=== PATIENT | male | born 2000 | race Caucasian/White ===

== ENCOUNTER 2024-05-06 10:05 | Emergency (ER) | payer MEDICAID, SELFPAY ==
[2024-05-06 10:07] VITALS: BP 123/81; PULSE 88; RESP 19; TEMP 37; O2SAT 98; BMI 26.4
--- NOTE | 2024-05-06 10:45 | EDNOTE_ITS ---
ED Wound/Laceration-RME/HPI General Chief Complaint: Wound/Laceration Stated Complaint: I THINK I NEED STITCHES ON MY THUMB Time Seen by Provider: 05/06/24 10:12 Source: patient Arrival date/time: 05/06/24 10:05 24-year-old male presented to the emergency department with a distal tip first digit right hand laceration. Patient reports he was working with his tile saw and accidentally cut the distal tip of his finger. Patient did not attempt any interventions or take any OTC medications prior to ED visit. Mode of arrival: ambulatory Limitations: no limitations Related Data Previous Rx's ?Medication ?Instructions ?Recorded hydroxyzine HCl 25 mg tablet 25 mg PO Q8H PRN anxiety #30 tabs 09/06/17 etodolac 400 mg tablet 400 mg PO BID PRN pain #30 tabs 12/09/21 Allergies Allergy/AdvReac Type Severity Reaction Status Date / Time No Known Allergies Allergy Unknown Verified 05/06/24 10:06 Review of Systems Review of Systems Systems Reviewed: All systems reviewed, normal except as documented Narrative Review of Systems: Gen: No fever, no chills, no weight loss EYES: No discharge, no visual changes, no pain HEENT: No ear pain, no congestion, no sore throat PULM: No shortness of breath, no cough, no congestion CV: No chest pain, no dyspnea on exertion, no palpitations GI: No nausea, no vomiting, no diarrhea, no pain, no constipation : No frequency, no urgency,? no dysuria Musc/skel: +finger pain, no back pain Skin: No rash? ED Exam General Limitations: Present no limitations General appearance: Present alert and in no apparent distress Head Head exam: Present atraumatic Eye Eye exam: Present normal appearance, PERRL and EOMI ENT ENT exam: Present normal exam, normal oropharynx and mucous membranes moist Neck Neck exam: Present normal inspection, full ROM and trachea midline Chest Chest inspection: Present normal inspection and symmetric chest wall rise Respiratory Respiratory exam: Present normal lung sounds bilaterally Cardiovascular Cardiovascular exam: Present regular rate, normal rhythm, normal heart sounds, +S1 and +S2 Abdominal Exam Abdominal exam: Present soft and normal bowel sounds Extremities Exam Extremities exam: Present full ROM Expanded Upper Extremity Exam Shoulder exam: Present normal inspection Arm exam: Present normal inspection Elbow exam: Present normal inspection Forearm/Wrist exam: Present normal inspection Hand L/R back image: 2 1. RT hand 1st digit, distal skin avulsion. CMS intact. Back Exam Back exam: Present normal inspection and full ROM Neurological Exam Neurological exam: Present alert, oriented X3 and CN II-XII intact Psychiatric Psychiatric exam: Present normal affect and normal mood Skin Skin exam: Present warm, dry, intact and normal color Course Quality Measures none Orders Category Date Time Status Wound Care NOW Care 05/06/24 10:35 Completed XR finger RT min 2V Stat Exams 05/06/24 11:01 Completed Vital Signs Vital signs: Vital Signs Temperature 98.6 F 05/06/24 10:07 Pulse Rate 88 05/06/24 10:07 Respiratory Rate 19 05/06/24 10:07 Blood Pressure 123/81 05/06/24 10:07 Pulse Oximetry (%) 98 05/06/24 10:07 Oxygen Delivery Method Room Air 05/06/24 10:07 Wound / Laceration MDM Narrative MDM Narrative:: Proceudre: Using sterile technique, patients wound cleansed, 1cm superficial wound clease with 150ml of normal saline, alllowed to dry, then used 3 steri strips with Dermabond for complete closure of wound. Patient tolerated procedure well. He is up-to-date with his Tdap. Wound care, follow-up with his PCP 3 days for follow-up care Return to the emergency department with any worsening symptoms and condition. Patient data External records reviewed:: [facility] previous records Clinical information provided by:: patient Social determinants that could affect healthcare access:: none Patient has the following chronic illnesses:: no How is presenting disease/condition affected by chronic disease/condition?: no chronic disease Evaluation data The following diagnostics were reviewed and interpreted by me:: radiology exam(s) Lab and/or radiology exams considered but not ordered:: no Interpretation Summary: Examination: Fingers, right hand first digit 3 views Technique: AP, oblique, lateral views right hand first digit 3 views. Exam date and time: May 06, 2024 1102 hours INDICATIONS: Laceration to the thumb today with some pain FINDINGS: No acute fracture No foreign body No dislocation IMPRESSION: Negative for opaque foreign body Medications / Prescriptions Medications or Prescriptions considered but not ordered:: no Medication administrations:: No Consultations Consultation(s) initiated? (list below): No Diagnosis Wound Differential Diagnosis: laceration, abscess, abrasion and avulsion of skin Most likely diagnosis given after review of the tests above:: Superficial laceration right thumb, dermabond Admission Indicated Admission indicated?: not indicated Admission Request Was there a request for admission?: No Disposition Plan Disposition Plan: Discharge Discharge Attestation Discharge Attestation: The patient and all family members were given an opportunity to ask questions and understood the discharge instructions. Discharge instructions specifically effects, indications for sooner follow up or return to the emergency department, and the expected course of current diagnosis. Patient condition: Stable Discharge Plan Plan Patient Disposition: HOME (Self Care) Patient condition on transfer: Stable Prescriptions/Referrals Prescriptions/Med Rec: No Action hydroxyzine HCl 25 mg tablet 25 mg PO Q8H PRN (Reason: anxiety) Qty: 30 0RF etodolac 400 mg tablet 400 mg PO BID PRN (Reason: pain) Qty: 30 0RF Problem List Clinical Impression: Laceration Patient/Caregiver Discharge Instructions Discharge Activity: activity as tolerated Education Materials: ED Laceration, Hand: All Closures Additional Instructions: Please do not pick or peel at the [employer]i-[employer]rips. Keep area clean and dry. Follow-up with your primary doctor for wound recheck in 48 hours. Return to the emergency department if there is any worsening symptoms or change in condition. Print Language: Croatian Stand Alone Forms: Mandi Award Info., Patient Portal Info Letter DICK/ANISH Supervising Physician DICK/ANISH Supervising Physician: Dr Van
--- NOTE | 2024-05-06 11:01 | XR_ITS ---
Examination: Fingers, right hand first digit 3 views Technique: AP, oblique, lateral views right hand first digit 3 views. Exam date and time: May 06, 2024 1102 hours INDICATIONS: Laceration to the thumb today with some pain FINDINGS: No acute fracture No foreign body No dislocation IMPRESSION: Negative for opaque foreign body
== END 2024-05-06 11:38 | disposition home or self-care (01) ==
LOC: SERX 11:27
PROVIDERS: Emergency Provider Emergency Medicine
DX: S61.011A Laceration without foreign body of right thumb without damage to nail, initial encounter (principal); W31.2XXA Contact with powered woodworking and forming machines, initial encounter
CPT/HCPCS: 12001; 73140; 99283